=== PATIENT | female | born 1990 | race Caucasian/White ===

== ENCOUNTER 2021-05-18 13:01 | Outpatient (CLI) | payer OTHER ==
[~2021-05-18] VITALS: Ht 157.5 cm; Wt 75.8 kg
[2021-05-18 13:27] VITALS: BP 120/82
[2021-05-18] MEDS ORDERED: PRENTAB9 PO (14:19)
[2021-05-18] MEDS ORDERED: TUMS500C PO (14:26)
[2021-05-18] MEDS ORDERED: ACET-907 PO (14:26)
== END 2021-05-18 15:10 | disposition home or self-care (01) ==
LOC: M LDO 13:01
PROVIDERS: ATTEND Registered Nurse
DX: O26.893 Other specified pregnancy related conditions, third trimester (principal); Z3A.39 39 weeks gestation of pregnancy; R50.9 Fever, unspecified; R42 Dizziness and giddiness

== ENCOUNTER 2021-05-19 20:58 | Inpatient (IN) | payer OTHER ==
[2021-05-19] VITALS (7 sets, daily range): BP systolic 129–142; BP diastolic 65–85
[~2021-05-19] VITALS: Ht 157.5 cm; Wt 76.4 kg
[~2021-05-19 20:58] MED LIST: ACET-907 PO; PRENTAB9 PO; TUMS500C PO
[2021-05-19] MEDS ORDERED: HOME MED LIST COMPLETE! XX SCH (21:10)
[2021-05-19] MEDS ORDERED: LACTATED RINGER'S 1000 ML IV STA (21:27)
[2021-05-19] MEDS ORDERED: LIDOCAINE 1% MDV 20ML VIAL INFIL PRN (21:30)
[2021-05-19] MEDS ORDERED: CARBOPROST TROMETHAMINE 250 MCG/ML AMP IM PRN (21:30)
[2021-05-19] MEDS ORDERED: TRANEXAMIC ACID INJection 1,000 MG in NS 100 ML IV PRN (21:30)
[2021-05-19] MEDS ORDERED: OXYTOCIN INJ 10 UNITS/ML VIAL (J2590) IM PRN (21:30)
[2021-05-19] MEDS ORDERED: OXYTOCIN DRIP 30 UNITS in IV 1 EA IV PRN ×4 (21:30)
[2021-05-19] MEDS ORDERED: OXYTOCIN INJ 10 UNITS/ML VIAL (J2590) IV PRN (21:30)
[2021-05-19] MEDS ORDERED: OXYTOCIN DRIP 30 UNITS in IV 1 EA IV SCH (21:30)
[2021-05-19] MEDS ORDERED: LR 1,000 ML IV SCH (21:30)
[2021-05-19] MEDS ORDERED: METHYLERGONOVINE MALEATE 0.2 MG/ML VIAL (J2210) IM PRN (21:30)
[2021-05-19] MEDS ORDERED: OXYTOCIN INJ 10 UNITS/ML VIAL (J2590) As Ordered ONE (21:35)
[2021-05-19] MEDS ORDERED: OXYTOCIN 30 UNITS IN 0.9% NaCl 500ML IV BAG (J2590) As Ordered ONE (21:35)
[2021-05-19] MEDS ORDERED: LIDOCAINE 1% MDV 20ML VIAL As Ordered ONE (21:39)
[2021-05-19 22:09] LABS: BASO # 0.1 10^3/uL (0.0-0.2); BASO % 0.3 % (0.0-1.0); EOS # 0.1 10^3/uL (0.0-0.5); EOS % 0.5 % (0.0-3.0); HEMATOCRIT 38.7 % (36.0-47.0); HEMOGLOBIN 13.1 g/dl (12.0-15.5); LYMPH # 4.1 10^3/uL (1.5-5.0); LYMPH % 27.8 % (24.0-44.0); MEAN CORPUSCULAR HEMOGLOBIN 30.8 pg (27.0-33.0); MEAN CORPUSCULAR HGB CONC 33.9 g/dl (32.0-36.5); MEAN CORPUSCULAR VOLUME 91.1 fl (80.0-96.0); MONO # 1.3 10^3/uL (0.0-0.8); MONO % 8.5 % (2.0-8.0); NEUTROPHILS # 9.1 10^3/uL (1.5-8.5); PLATELET COUNT, AUTOMATED 309 10^3/uL (150-450); RED BLOOD COUNT 4.25 10^6/uL (4.00-5.40); WHITE BLOOD COUNT 14.8 10^3/uL (4.0-10.0)
[2021-05-19 22:20] LABS: ALT/SGPT 18 U/L (12-78); BILIRUBIN,TOTAL 0.3 MG/DL (0.2-1.0); CREATININE FOR GFR 0.74 MG/DL (0.55-1.30); GLOMERULAR FILTRATION RATE > 60.0 (>60); LDH LACTATE DEHYDROGENASE 161 U/L (84-246); URIC ACID 3.9 MG/DL (2.6-6.0)
[2021-05-19] MEDS ORDERED: DOCUSATE SODIUM 100MG CAPSULE PO PRN ×21 (22:40)
[2021-05-19] MEDS ORDERED: DIBUCAINE 1% OINTMENT 30GM TOP PRN (22:40)
[2021-05-19] MEDS ORDERED: ACETAMINOPHEN TAB 650MG DOSE (2X325MG) PO PRN ×20 (22:40)
[2021-05-19] MEDS ORDERED: IBUPROFEN 800 MG TAB PO PRN ×20 (22:40)
[2021-05-19] MEDS ORDERED: ACETAMINOPHEN 500 MG TAB PO PRN ×21 (22:40)
[2021-05-19] MEDS ORDERED: LIDOCAINE 1% MDV 20ML VIAL SC ONE (22:40)
[2021-05-19] MEDS ORDERED: ANUSOL HC CREAM 30GM TOP PRN (22:40)
[2021-05-19] MEDS ORDERED: MOM 30ML SUSPENSION UDC PO PRN ×21 (22:40)
[2021-05-20 00:45] VITALS: BP 113/67
[2021-05-20 06:15] VITALS: BP 115/72
[2021-05-20] MEDS: ACETAMINOPHEN TAB 650MG DOSE (2X325MG) PO PRN ×2 (06:20→15:06)
[2021-05-20] MEDS: PRENATAL VITAMINS CHEWABLE TABLET PO SCH (08:00)
[2021-05-20] MEDS: IBUPROFEN 800 MG TAB PO PRN (16:00)
[2021-05-21] MEDS: IBUPROFEN 800 MG TAB PO PRN (04:00)
[2021-05-21 06:00] VITALS: BP 114/65
[2021-05-21] MEDS ORDERED: COLA100C5 PO (07:06)
[2021-05-21] MEDS ORDERED: IBUP80TA PO (07:06)
[2021-05-21] MEDS ORDERED: MOM30SS2 PO (07:06)
[2021-05-21] MEDS: PRENATAL VITAMINS CHEWABLE TABLET PO SCH (08:35)
== END 2021-05-21 10:40 | disposition home or self-care (01) | DRG 807 ==
LOC: M LDO 20:58 → M LDI 21:26 → M OBS 05-20 00:15
PROVIDERS: ADMIT Obstetrics & Gynecology; ATTEND Obstetrics & Gynecology
PROC: 10E0XZZ Delivery of Products of Conception, External Approach (ICD-10-PCS; principal; 2021-05-19)
PROC: 0HQ9XZZ Repair Perineum Skin, External Approach (ICD-10-PCS; 2021-05-19)
DX: O62.3 Precipitate labor (principal); Z37.0 Single live birth; O32.6XX0 Maternal care for compound presentation, not applicable or unspecified; O70.0 First degree perineal laceration during delivery